=== PATIENT | male | born 1955 | race Caucasian/White ===

== ENCOUNTER 2017-02-13 09:36 | Emergency (ER) | payer OTHER ==
[~2017-02-13] VITALS: Ht 175.3 cm; Wt 104.9 kg
[2017-02-13 09:38] VITALS: Ht 175.3 cm; Wt 104.9 kg
--- NOTE | 2017-02-13 10:02 | ERD ---
ER Documentation Chief Complaint Chief Complaint right leg pain x 7 days, no trauma HPI 61-year-old male, previously healthy, presents to the emergency department complaining of worsening of lower back pain radiated to the right leg for the last 7 days. The pain is described as dull, constant, 8/10. No history of trauma. No treatment attempted at this time. No history of previous evaluation. History provided by patient. The patient denies weakness, numbness , incontinence, no fever or chills. ROS SYSTEMIC symptoms: no fever, chills, no night sweats, no weight loss EYE symptoms: No blurred vision, no eye discharge OTOLARYNGEAL symptoms: No hearing loss. No ear pain, no sore throat CARDIOVASCULAR symptoms: No chest pain or discomfort, no palpitations. PULMONARY symptoms: No dyspnea, no cough, no wheezing. GASTROINTESTINAL symptoms: No abdominal pain, no nausea, no vomiting, no diarrhea MUSCULOSKELETAL symptoms: Per HPI NEUROLOGY symptoms: No confusion, no syncope, no numbness or tingling. SKIN: No rashes Medications Home Meds Active Scripts Hydrocodone/Acetaminophen ([place] 5-325 Tablet) 1 Each Tablet, 1 TAB PO TID Y for SEVERE PAIN LEVEL 7-10, #20 TAB Prov:DON COPELAND MD 02/13/17 Baclofen* (Baclofen*) 10 Mg Tablet, 10 MG PO Q8 for MUSCLE SPASMS for 10 Days, # 30 TAB Prov:DON COPELAND MD 02/13/17 Prednisone* (Prednisone*) 20 Mg Tab, 40 MG PO DAILY for 4 Days, TAB Prov:DON COPELAND MD 02/13/17 Allergies Allergies: Coded Allergies: No Known Allergy (Unverified , 02/13/17) Physical Exam Vitals Vital Signs Date Time Temp Pulse Resp B/P Pulse Ox O2 Delivery O2 Flow Rate FiO2 02/13/17 09:38 98.0 80 18 174/97 95 Physical Exam Patient is in mild distress due to pain, vital signs stable. Alert and fully oriented. EYES: PERRLA, EOMI, Sclera and conjunctiva appear normal. EARS: Canals clear, tympanic membranes WNL THROAT: Normal oropharynx. NECK: Supple, No lymphadenopathy. Full ROM without pain or tenderness. HEART: RRR, no rubs, murmurs, clicks or gallops. LUNGS: Clear to auscultation. ABDOMEN: Soft, non-tender without masses or hepatosplenomegaly. EXTREMITIES: No edema bilaterally. Neurovascular intact BACK: Normal inspection, no deformity, decreased range of motion to flexion and lateral rotation. No vertebral tenderness NEURO: Cranial nerves grossly intact, no motor or sensory deficit Results 24 hrs Current Medications Medications (Trade) Dose Ordered Sig/Mckinley Route PRN Reason Start Time Stop Time Status Last Admin Dose Admin Ketorolac Tromethamine (Toradol) 60 mg ONCE STAT IM 02/13/17 10:04 02/13/17 10:07 DC 02/13/17 10:15 Procedures/MDM 59y/o male patient previously healthy, presents to the ED c/o worsening of back pain that radiated to the right lower extremity for 7 days. Vital signs stable , Physical exam unremarkable, neurovascular exam intact. Differential diagnosis include but not limited to: Acute musculoskeletal injury, herniated disc, urolithiasis, UTI, arthritis, degenerative disc disease. Low suspicion for vertebral fracture, cauda equina syndrome, psoas abscess. Physical examination and clinical presentation consistent most likely with lower back pain with sciatica. During the ED course the patient received treatment with Toradol IM presenting overall improvement of the symptoms. Results and clinical impression discussed with patient who agrees with management. The patient is stable to be treated outpatient and will be discharged home with a Rx for prednisone, baclofen and W[place]rop as needed for pain. Side effects of prescribed medications (headache, rash, nausea, vomiting, diarrhea) were reviewed. Side effects of prescribed opiates (drowsiness, habituation) were reviewed. Side effects of prescribed NSAID medication (GI distress, edema, bleeding, HTN) were reviewed. The patient was instructed to follow up with the primary care provider in the next 48h. If symptoms persist, worsen or new symptoms develop, then patient should return to the ED immediately. Instructions explained and given to patient in Iranian with acknowledgment and demonstrated understanding. Disclaimer: Inadvertent spelling and grammatical errors are likely due to EHR/ dictation software use and do not reflect on the overall quality of patient care. Also, please note that the electronic time recorded on this note does not necessarily reflect the actual time of the patient encounter. Departure Diagnosis: Primary Impression: Back pain with sciatica Condition: Stable Additional Instructions: Call your primary care doctor TOMORROW for an appointment during the next 1-2 days. See the doctor sooner or return here if your condition worsens before your appointment time. Thank you very much for allowing us to participate in your care. Your health and safety is our top priority at [facility]. Have prescriptions filled and follow precisely the directions on the label. Follow-up with primary care provider during the next 4 days and bring all the information and medications prescribed. If illness has not improved in 2 days, then make an appointment with primary care provider. If the provider is unavailable, return to the Emergency Department immediately. DON COPELAND MD Feb 13, 2017 10:02
[2017-02-13] MEDS ORDERED: KETOROLAC 60 MG INJ IM STA (10:04)
[2017-02-13] MEDS ORDERED: PRED20TA PO (10:59)
[2017-02-13] MEDS ORDERED: HYDR-906 PO (10:59)
[2017-02-13] MEDS ORDERED: BACL10TA PO (10:59)
== END 2017-02-13 11:05 | disposition home or self-care (01) ==
LOC: FTE 09:36
DX: M54.41 Lumbago with sciatica, right side (principal)
CPT/HCPCS: 96372; J1885; Z7502

== ENCOUNTER 2017-02-21 11:32 | Emergency (ER) | payer OTHER ==
[~2017-02-21] VITALS: Wt 105.1 kg
[~2017-02-21 11:32] MED LIST: BACL10TA PO; HYDR-906 PO; PRED20TA PO
--- NOTE | 2017-02-21 13:14 | ERD ---
ER Documentation Chief Complaint Chief Complaint RIGHT LOWER BACK/SIDE PAIN HPI 61-year-old male, returns to the emergency department complaining of persistent right lower back pain radiating to the right lower extremity, the pain has not changed according to the patient and the daughter. He was seen 3 days ago by his primary physician no medications changed at that time a referral for orthopedic evaluation and MRI was placed. The pain is constant, sharp, 8 out of 10. I discharged the patient last week with a prescription for right sciatic pain that included prednisone, muscle relaxant, and opioids medication, according to the patient has been taking the medications, however when I checked the bottles the patient took only 2 pills of each medication. No fever , no incontinence, no rashes, no weakness, no tingling. ROS All systems reviewed and are negative except as per history of present illness. Medications Home Meds Active Scripts Hydrocodone/Acetaminophen ([place] 5-325 Tablet) 1 Each Tablet, 1 TAB PO TID Y for SEVERE PAIN LEVEL 7-10, #20 TAB Prov:DON COPELAND MD 02/13/17 Baclofen* (Baclofen*) 10 Mg Tablet, 10 MG PO Q8 for MUSCLE SPASMS for 10 Days, # 30 TAB Prov:DON COPELAND MD 02/13/17 Prednisone* (Prednisone*) 20 Mg Tab, 40 MG PO DAILY for 4 Days, TAB Prov:DON COPELAND MD 02/13/17 Allergies Allergies: Coded Allergies: No Known Allergy (Unverified , 02/13/17) PMhx/Soc History of Surgery: No Anesthesia Reaction: No Hx Neurological Disorder: No Hx Respiratory Disorders: No Hx Cardiac Disorders: Yes (HTN) Hx Psychiatric Problems: No Hx Miscellaneous Medical Probl: Yes (HYPERLIPIDEMIA) Hx Alcohol Use: No Hx Substance Use: No Hx Tobacco Use: Yes Smoking Status: Current every day smoker Physical Exam Vitals Vital Signs Date Time Temp Pulse Resp B/P Pulse Ox O2 Delivery O2 Flow Rate FiO2 02/21/17 11:34 98.0 94 17 185/96 97 Physical Exam Patient is in no acute distress, vital signs stable. Alert and fully oriented. EYES: PERRLA, EOMI, Sclera and conjunctiva appear normal. EARS: Canals clear, tympanic membranes WNL THROAT: Normal oropharynx. NECK: Supple, No lymphadenopathy. Full ROM without pain or tenderness. HEART: RRR, no rubs, murmurs, clicks or gallops. LUNGS: Clear to auscultation. ABDOMEN: Soft, non-tender without masses or hepatosplenomegaly. EXTREMITIES: No edema bilaterally. BACK: Normal inspection, tenderness to palpation right lumbar paravertebral area , no vertebral tenderness, right muscle spasm noticed. Neurovascular exam intact NEURO: Cranial nerves grossly intact, no motor or sensory deficit Results 24 hrs [place] [id number] Radiology Main Line: [phone] DIAGNOSTIC IMAGING REPORT Patient: JAMES WHITING : 1955 Age: 61 Sex: M MR #: [id number] DOS: 02/21/17 1310 Ordering MD: DON COPELAND MD Location: [facility] Room/Bed: PROCEDURE: CT L-Spine. CLINICAL INDICATION: Back pain TECHNIQUE: A CT of the lumbar spine was performed on a multidetector CT scanner utilizing axial images from the thoracic lumbar junction through the lumbar sacral junction. Sagittal and coronal reformatted images were made. The CTDIvol is 38mGy and the DLP is 1061mGycm. One or more of the following dose reduction techniques were used: Automated exposure control, Adjustment of the mA and/or kV according to patient size, and/or use of iterative reconstruction technique. DICOM images are available. COMPARISON: none FINDINGS: Transitional lumbosacral anatomy with partial fusion of the left L5 transverse process with the sacrum. Mild lumbar levoscoliosis. No evidence of an acute lumbar vertebral compression fracture. L1-2: The disk space height is maintained. No bony spinal canal or bony foraminal narrowing. L2-3: Mild left-sided disc height loss. Small to moderate circumferential disc bulging with mild to moderate left and mild right foraminal narrowing. There is mild spinal canal narrowing. Facet arthropathy. L3-4: Small circumferential disc bulging with mild to moderate right greater than left foraminal narrowing no significant spinal canal narrowing. Facet arthropathy. L4-5: Moderate disc bulging with right foraminal disc osteophytes. Combined with facet arthropathy, there is severe right and moderate left foraminal stenosis. There is narrowing of the right lateral recess with mild spinal canal narrowing. L5-1: Right foraminal osteophyte ridge results in moderate to severe right foraminal stenosis. No bony spinal canal narrowing. Right greater than left facet arthropathy. The paraspinous soft tissues are grossly unremarkable. Mild aortoiliac atherosclerosis. IMPRESSION: Mild lumbar levoscoliosis. No acute compression fracture. Multilevel degenerative spondylosis/enthesopathy. Severe right foraminal stenosis L4-5 may impinge the exiting right L4 nerve. Moderate to severe right foraminal stenosis L5-S1 may impinge the exiting right L5 nerve. RPTAT: AA .Sarkis Graff MD, MD Date Time Electronically viewed and signed by .Sarkis Graff MD, MD on 02/21/2017 13:42 .T/ CC: DON COPELAND MD Procedures/MDM Low back pain: no red flags. Differential diagnosis include but not limited to: lumbar sprain/strain, sciatica, herniated disk, UTI less likely pyelo, kidney stone. Neurovascular exam grossly intact. no clinical findings suggestive of acute infectious process, no acute deformity, no edema, no rashes. Pertinent Data: Lumbar spine CT: Severe right foraminal stenosis L4-5 may impinge the exiting right L4 nerve. Moderate to severe right foraminal stenosis L5-S1 may impinge the exiting right L5 nerve. Physical examination and clinical presentation consistent most likely with acute on chronic back pain with sciatica and poor compliance to treatment. During the ED course the patient received treatment with Toradol IM presenting overall improvement of the symptoms. Results and clinical impression discussed with recent who agrees with management. The patient is stable to be treated outpatient and will be discharged home with recommendations and close monitoring. The patient was instructed to follow up with the primary care provider in the next 48h. If symptoms persist, worsen or new symptoms develop, then patient should return to the ED immediately. Instructions explained and given to patient in Italian with acknowledgment and demonstrated understanding. Disclaimer: Inadvertent spelling and grammatical errors are likely due to EHR/ dictation software use and do not reflect on the overall quality of patient care. Also, please note that the electronic time recorded on this note does not necessarily reflect the actual time of the patient encounter. Departure Diagnosis: Primary Impression: Sciatic nerve pain Additional Impressions: Back pain Poor compliance with medication Condition: Stable Additional Instructions: Call your primary care doctor TOMORROW for an appointment during the next 1-2 days. See the doctor sooner or return here if your condition worsens before your appointment time. Thank you very much for allowing us to participate in your care. Your health and safety is our top priority at [facility]. Have prescriptions filled and follow precisely the directions on the label. Follow-up with primary care provider during the next 4 days and bring all the information and medications prescribed. If illness has not improved in 2 days, then make an appointment with primary care provider. If the provider is unavailable, return to the Emergency Department immediately. DON COPELAND MD Feb 21, 2017 13:14
--- NOTE | 2017-02-21 13:43 | RADRPT ---
PROCEDURE: CT L-Spine. CLINICAL INDICATION: Back pain TECHNIQUE: A CT of the lumbar spine was performed on a multidetector CT scanner utilizing axial im ages from the thoracic lumbar junction through the lumbar sacral junction. Sagittal and coronal ref ormatted images were made. The CTDIvol is 38mGy and the DLP is 1061mGycm. One or more of the followi ng dose reduction techniques were used: Automated exposure control, Adjustment of the mA and/or kV a ccording to patient size, and/or use of iterative reconstruction technique. DICOM images are availab le. COMPARISON: none FINDINGS: Transitional lumbosacral anatomy with partial fusion of the left L5 transverse process with the sacr um. Mild lumbar levoscoliosis. No evidence of an acute lumbar vertebral compression fracture. L1-2: The disk space height is maintained. No bony spinal canal or bony foraminal narrowing. L2-3: Mild left-sided disc height loss. Small to moderate circumferential disc bulging with mild to moderate left and mild right foraminal narrowing. There is mild spinal canal narrowing. Facet arthro drew. L3-4: Small circumferential disc bulging with mild to moderate right greater than left foraminal sarai rowing no significant spinal canal narrowing. Facet arthropathy. L4-5: Moderate disc bulging with right foraminal disc osteophytes. Combined with facet arthropathy, there is severe right and moderate left foraminal stenosis. There is narrowing of the right lateral recess with mild spinal canal narrowing. L5-1: Right foraminal osteophyte ridge results in moderate to severe right foraminal stenosis. No abbie ny spinal canal narrowing. Right greater than left facet arthropathy. The paraspinous soft tissues are grossly unremarkable. Mild aortoiliac atherosclerosis. IMPRESSION: Mild lumbar levoscoliosis. No acute compression fracture. Multilevel degenerative spondylosis/enthesopathy. Severe right foraminal stenosis L4-5 may impinge the exiting right L4 nerve. Moderate to severe right foraminal stenosis L5-S1 may impinge the exiting right L5 nerve. RPTAT: AA .Sarkis Graff MD, MD Date Time Electronically viewed and signed by .Sarkis Graff MD, on 02/21/2017 13:42 .T/
== END 2017-02-21 14:59 | disposition home or self-care (01) ==
LOC: FTE 11:32
DX: M54.41 Lumbago with sciatica, right side (principal); I10 Essential (primary) hypertension; F17.210 Nicotine dependence, cigarettes, uncomplicated; Z91.14 Patient's other noncompliance with medication regimen
CPT/HCPCS: 72131; Z7502